=== PATIENT | female | born 1985 | race American Indian/Alaskan Native ===

== ENCOUNTER 2016-11-29 02:45 | Emergency (ER) | payer OTHER ==
[2016-11-29 02:59] VITALS: BP 161/119
[2016-11-29] MEDS ORDERED: TYLENOL PO ONE (04:03)
== END 2016-11-29 04:08 | disposition left against medical advice (07) ==
LOC: ED 02:45
DX: N64.4 Mastodynia (principal); Z53.21 Procedure and treatment not carried out due to patient leaving prior to being seen by health care provider

== ENCOUNTER 2016-12-04 14:34 | Emergency (ER) | payer OTHER ==
--- NOTE | 2016-12-04 16:31 | Emergency Department Report ---
HPI - General Chief Complaint: Skin/Abscess/Foreign Body Time Seen by Provider: 12/04/16 16:00 - HPI HPI: The year-old female presents today with breast pain 1 week. Positive for history of left breast abscess was drained. Positive for one episode of white nipple discharge. Denies nipple bleeding. Patient states she has been applying warm compresses. She tried ibuprofen without relief. Describes her pain as 10 out of 10 constant, sharp, throbbing pain. Patient denies breast feeding. Denies fever, chills, nausea, vomiting, chest pain, shortness of breath, abdominal pain. ED Past Medical Hx - Past Medical History Previous Medical History?: No - Surgical History Past Surgical History?: No Additional Surgical History: left breast surgery - Social History Smoking Status: Current Every Day Smoker Substance Use Type: Alcohol - Medications Home Medications: Home Medications Medication Instructions Recorded Confirmed Last Taken Type Amoxicillin [Trimox CAP] 500 mg PO Q8H #30 capsule 10/05/13 Unknown Rx Promethazine Dm [Phenergan DM 5 ml PO Q6H PRN #100 ml 10/05/13 Unknown Rx 6.25-15 mg/5 ml] Cephalexin [Keflex] 500 mg PO QID #20 cap 12/04/16 Unknown Rx HYDROcodone/APAP 5-325 [[place] 1 each PO Q6HR PRN #20 tablet 12/04/16 Unknown Rx 5-325 mg TAB] Sulfamethoxazole/Trimethoprim 1 each PO BID #10 tablet 12/04/16 Unknown Rx [Bactrim DS TAB] ED Review of Systems ROS: Stated complaint: LT BREAST SWOLLEN Other details as noted in HPI Constitutional: denies: chills, fever, malaise Eyes: denies: eye pain ENT: denies: ear pain, throat pain, congestion Respiratory: denies: cough, shortness of breath, wheezing Cardiovascular: denies: chest pain, palpitations Endocrine: no symptoms reported Gastrointestinal: denies: abdominal pain, nausea, vomiting Neurological: denies: headache, weakness Physical Exam - Physical Exam Vital Signs: Vital Signs 12/04/16 15:14 Temperature 98.8 F Pulse Rate 75 Blood Pressure 128/89 O2 Sat by Pulse 99 Oximetry Physical Exam: GENERAL: The patient is well-developed and well-nourished. Patient is in NAD. HEAD: Normocephalic. Atraumatic. CHEST/LUNGS: Clear to auscultation throughout. HEART/CARDIOVASCULAR: Regular rate and rhythm. BREAST: Erythematous, warm to touch, tender to palpation, 4.5 cm in diameter abscess noted under the left nipple. No drainage or bleeding noted. ABDOMEN: Abdomen is soft, nontender. Bowel sounds normoactive. No guarding or rebound tenderness. EXTREMITIES: Peripheral pulses intact. Capillary refill less than 2 seconds. NEURO: Alert and oriented x 3. Normal gait. ED Course Vital Signs 12/04/16 15:14 Temperature 98.8 F Pulse Rate 75 Blood Pressure 128/89 O2 Sat by Pulse 99 Oximetry - Reevaluation(s) Reevaluation #1: 12/04/16 17:[address] Lopez. Dr. Lopez agreed to drain the abscess and start the patient on Ancef. He recommended to send the patient home on Keflex, Bactrim and [place]. He would like the patient to follow up with him in 5 days. Critical care attestation.: If time is entered above; I have spent that time in minutes in the direct care of this critically ill patient, excluding procedure time. ED Disposition Clinical Impression: Abscess of breast Disposition: DISCHARGED TO HOME OR SELFCARE Is pt being admited?: No Does the pt Need Aspirin: No Condition: Stable Instructions: Abscess Incision and Drainage (ED), Abscess (ED) Additional Instructions: Follow-up with on December 09 2016. Return to the emergency department if symptoms worsen. Prescriptions: Cephalexin [Keflex] 500 mg PO QID #20 cap HYDROcodone/APAP 5-325 [[place] 5-325 mg TAB] 1 each PO Q6HR PRN #20 tablet PRN Reason: Pain Sulfamethoxazole/Trimethoprim [Bactrim DS TAB] 1 each PO BID #10 tablet Referrals: PRIMARY CAREMD [Primary Care Provider] - 3-5 Days OANH LOPEZ MD [Staff Physician] - 3-5 Days Forms: Work/School Release Form(ED) Time of Disposition: 19:06
[2016-12-04] MEDS ORDERED: NORCO 5/325 PO ONE (16:37)
[2016-12-04] MEDS ORDERED: XYLOCAINE 1%/ EPI 1:100,000 INFILTRATI ONE (16:37)
[2016-12-04] MEDS ORDERED: ceFAZolin 2 GM in NACL 0.9% 100 ML IV ONE (17:25)
--- NOTE | 2016-12-04 17:30 | Consultation ---
History of Present Illness Consult date: 12/04/16 Reason for consult: other (breast abscess) Chief complaint: Left breast pain - History of present illness History of present illness: 30 years old female came to the hospital with a few day history of left breast pain. Reports tenderness and redness on the left breast. Medications and Allergies Allergies Allergy/AdvReac Type Severity Reaction Status Date / Time No Known Allergies Allergy Unverified 10/05/13 04:49 Home Medications Medication Instructions Recorded Confirmed Last Taken Type Amoxicillin [Trimox CAP] 500 mg PO Q8H #30 capsule 10/05/13 Unknown Rx HYDROcodone/APAP 5-325 [[place] 1 each PO Q6HR PRN #16 tablet 10/05/13 Unknown Rx 5-325 mg TAB] Promethazine Dm [Phenergan DM 5 ml PO Q6H PRN #100 ml 10/05/13 Unknown Rx 6.25-15 mg/5 ml] Active Meds: Active Medications Cefazolin Sodium 2 gm/ Sodium (Chloride) 100 mls @ 200 mls/hr IV ONCE ONE Stop: 12/04/16 17:54 Review of Systems All systems: negative (present complaint) Exam Vital Signs Temp Pulse BP Pulse Ox 98.8 F 75 128/89 99 12/04/16 15:14 12/04/16 15:14 12/04/16 15:14 12/04/16 15:14 - General physical appearance Positive: well developed, well nourished, no distress - Eyes Positive: PERRL - ENT Positive: normal mucosa, no congestion - Neck Positive: no masses, no bruits, trachea midline, no venous distension - Respiratory Positive: normal expansion, normal respiratory effort, clear to auscultation - Cardiovascular Rhythm: regular Heart Sounds: Present: S1 & S2 - Extremities Extremities: no ischemia, pulses symmetrical, No edema - Breasts Breasts: swelling, other (tenderness, redness and fluctuant left breast at the medial area.) Assessment and Plan Impression: Left breast abscess. Plans: Incision and drainage of This. IV antibiotics 1 dose today and home on by mouth antibiotics. Pain medication. Follow up with me in the office in a week.
--- NOTE | 2016-12-04 17:32 | Procedure Note ---
Date of procedure: 12/04/16 Pre-op diagnosis: left breast abscess Post-op diagnosis: same Procedure: Incision and drainage of left breast abscess Findings: Abscess in the left breast medial to the areola, obtained about 4 mL of pus. Anesthesia: local Surgeon: OANH LOPEZ Estimated blood loss: none Pathology: none Condition: stable Disposition: same day
[2016-12-04] MEDS ORDERED: ROCEPHIN/NS 1 GM/50 ML 2 GM/100 ML BAG IV ONE (17:55)
[2016-12-04 20:15] VITALS: BP 156/93
== END 2016-12-04 19:10 | disposition home or self-care (01) ==
LOC: ED 14:34
DX: N61.1 Abscess of the breast and nipple (principal); F17.200 Nicotine dependence, unspecified, uncomplicated
CPT/HCPCS: 87116; 96365; 99283; J0696; J0690